=== PATIENT | male | born 2000 | race African-American/Black ===

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

== ENCOUNTER 2024-11-01 17:00 | Emergency (ER) | payer MEDICAID, OTHER ==
[~2024-11-01] VITALS: Ht 177.8 cm; Wt 97.9 kg
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
[2024-11-01] MEDS ORDERED: IBUP-1455 PO (18:13)
[2024-11-01] MEDS ORDERED: CYCL-837 PO (18:13)
[2024-11-01 20:09] VITALS: BP 137/71; PULSE 62; RESP 20; TEMP 98; O2SAT 99
== END 2024-11-01 20:12 | disposition home or self-care (01) ==
LOC: ER 17:00
DX: S16.1XXA Strain of muscle, fascia and tendon at neck level, initial encounter (principal); V89.2XXA Person injured in unspecified motor-vehicle accident, traffic, initial encounter; Y93.I9 Activity, other involving external motion; Y92.488 Other paved roadways as the place of occurrence of the external cause; Y99.8 Other external cause status